=== PATIENT | male | born 1980 | race Caucasian/White ===

== ENCOUNTER 2017-04-09 14:08 | Emergency (ER) | payer MEDICAID ==
[2017-04-09] MEDS ORDERED: Sodium Chloride 0.9% 1,000 ML IV ONE (14:34)
--- NOTE | 2017-04-09 14:43 | EDM.PDOC ---
ED HPI GENERAL MEDICAL PROBLEM - General Chief Complaint: Neuro Symptoms/Deficits Stated Complaint: AMBULANCE Time Seen by Provider: 04/09/17 14:20 Source of Information: Reports: Patient, Family History Limitations: Reports: No Limitations - History of Present Illness INITIAL COMMENTS - FREE TEXT/NARRATIVE: History of present illness: [37-year-old male presenting the EMS secondary to fall from chair and subsequent seizure activity. Patient is known to have alcohol withdrawal seizures in the past and indicates he feels that is what has happened at this time. Patient has never sought medical attention for medication for seizures. Patient indicates he drinks 10-12 beers daily and sometimes has a few shots of drug or Eddie with us indicates that he has attempting to become a free Mann and that during the testing phase he must remain clean and dry and sober which she has achieved for 2-3 days.] Review of systems: As per history of present illness and below otherwise all systems reviewed and negative. Past medical history: As per history of present illness and as reviewed below otherwise noncontributory. Surgical history: As per history of present illness and as reviewed below otherwise noncontributory. Social history: No reported history of drug or alcohol abuse. Family history: As per history of present illness and as reviewed below otherwise noncontributory. Physical exam: HEENT: Deformed nose with swelling, erythema and slight shift to the left with the appearance of fracture, minor abrasions to face, normocephalic, pupils reactive, negative for conjunctival pallor or scleral icterus, mucous membranes moist, throat clear, neck supple, nontender, trachea midline. Lungs: Clear to auscultation, breath sounds equal bilaterally, chest nontender. Heart: S1S2, regular, negative for clicks, rubs, or JVD. Abdomen: Soft, nondistended, nontender. Negative for masses or hepatosplenomegaly. Negative for costovertebral tenderness. Pelvis: Stable nontender. Genitourinary: Deferred. Rectal: Deferred. Extremities: Atraumatic, negative for cords or calf pain. Neurovascular unremarkable. Neuro: Awake, alert, oriented. Cranial nerves II through XII unremarkable. Cerebellum unremarkable. Motor and sensory unremarkable throughout. Exam nonfocal. Diagnostics: [CT of head and facial bones CBC, CMP, amylase, lipase] Therapeutics: [IV fluid] Impression: [#1 Alcohol abuse #2 alcohol withdrawal related seizure #3 fractured nasal bones] Plan: [Follow-up with PCP on Tuesday] Definitive disposition and diagnosis as appropriate pending reevaluation and review of above. - Related Data Allergies Allergy/AdvReac Type Severity Reaction Status Date / Time No Known Allergies Allergy Verified 04/09/17 14:13 Home Meds: Home Meds . [No Known Home Meds] 04/09/17 [History] Past Medical History - Past Health History Medical/Surgical History: Denies Medical/Surgical History Neurological History: Reports: Seizure Social & Family History - Family History Family Medical History: Noncontributory - Tobacco Use Smoking Status *Q: Current Every Day Smoker Years of Tobacco use: 27 Packs/Tins Daily: 1 - Recreational Drug Use Recreational Drug Use: No ED ROS GENERAL - Review of Systems Review Of Systems: See Below (See history of present illness) ED EXAM, GENERAL - Physical Exam Exam: See Below (History of present illness) Course - Vital Signs Last Recorded V/S: Last Vital Signs Temp 36.3 C 04/09/17 14:08 Pulse 98 04/09/17 14:08 Resp 18 04/09/17 14:08 BP 135/86 04/09/17 14:08 Pulse Ox 94 L 04/09/17 14:08 - Orders/Labs/Meds Orders: Active Orders 24 hr Category Date Time Status EKG 12 Lead [EKG Documentation Completion] [RC] STAT Care 04/09/17 14:27 Active Facial Bones Comp Min 3V [CR] Stat Exams 04/09/17 14:50 Taken Head wo Cont [CT] Stat Exams 04/09/17 14:35 Taken Labs: Laboratory Tests 04/09/17 04/09/17 Range/Units 14:45 14:45 WBC 6.71 (4.0-11.0) K/uL RBC 4.51 (4.50-5.90) M/uL Hgb 15.1 (13.0-17.0) g/dL Hct 43.5 (38.0-50.0) % MCV 96.5 (80.0-98.0) fL MCH 33.5 H (27.0-32.0) pg MCHC 34.7 (31.0-37.0) g/dL RDW Std Deviation 45.2 (28.0-62.0) fl RDW Coeff of Stephan 13 (11.0-15.0) % Plt Count 94 L (150-400) K/uL MPV 10.20 (7.40-12.00) fL Neut % (Auto) 73.7 (48.0-80.0) % Lymph % (Auto) 15.2 L (16.0-40.0) % [place] % (Auto) 10.1 (0.0-15.0) % Eos % (Auto) 0.6 (0.0-7.0) % Baso % (Auto) 0.4 (0.0-1.5) % Neut # (Auto) 4.9 (1.4-5.7) K/uL Lymph # (Auto) 1.0 (0.6-2.4) K/uL [place] # (Auto) 0.7 (0.0-0.8) K/uL Eos # (Auto) 0.0 (0.0-0.7) K/uL Baso # (Auto) 0.0 (0.0-0.1) K/uL Nucleated RBC % 0.0 /100WBC Nucleated RBCs # 0 K/uL Sodium 133 L (136-146) mmol/L Potassium 3.8 (3.5-5.1) mmol/L Chloride 98 (98-110) mmol/L Carbon Dioxide 23 (21-31) mmol/L BUN 3 L (6.0-23.0) mg/dL Creatinine 0.7 (0.6-1.5) mg/dL Est Cr Clr Drug Dosing TNP Estimated GFR (MDRD) > 60.0 ml/min Glucose 133 H (60-110) mg/dL Calcium 9.4 (8.8-10.8) mg/dL Total Bilirubin 2.2 H (0.1-1.5) mg/dL AST 108 H (5-40) IU/L ALT 46 (8-54) IU/L Alkaline Phosphatase 201 H (40-150) Troponin I < 0.10 (0.0-0.29) NG/ML Total Protein 6.9 (6.0-8.0) g/dL Albumin 3.8 (3.5-5.0) g/dL Globulin 3.1 (2.0-3.5) g/dL Albumin/Globulin Ratio 1.2 L (1.3-2.8) Amylase 85 (10-90) U/L Lipase 39 (7-80) U/L Meds: Medications Discontinued Medications Generic Name Dose Route Start Last Admin Trade Name Joseph PRN Reason Stop Dose Admin Sodium Chloride 1,000 mls @ 999 mls/hr 04/09/17 14:34 04/09/17 14:46 Normal Saline IV 04/09/17 15:34 999 mls/hr .Bolus ONE Administration Departure - Departure Time of Disposition: 15:48 Disposition: Home, Self-Care 01 Condition: Good Clinical Impression: Seizure, Nose fracture - Discharge Information Forms: ED Department Discharge Additional Instructions: The following information is given to patients seen in the emergency department who are being discharged to home. This information is to outline your options for follow-up care. We provide all patients seen in our emergency department with a follow-up referral. The need for follow-up, as well as the timing and circumstances, are variable depending upon the specifics of your emergency department visit. If you don't have a primary care physician on staff, we will provide you with a referral. We always advise you to contact your personal physician following an emergency department visit to inform them of the circumstance of the visit and for follow-up with them and/or the need for any referrals to a consulting specialist. The emergency department will also refer you to a specialist when appropriate. This referral assures that you have the opportunity for follow-up care with a specialist. All of these measure are taken in an effort to provide you with optimal care, which includes your follow-up. Under all circumstances we always encourage you to contact your private physician who remains a resource for coordinating your care. When calling for follow-up care, please make the office aware that this follow-up is from your recent emergency room visit. If for any reason you are refused follow-up, please contact the [facility] Emergency Department at and asked to speak to the emergency department charge nurse. Follow-up with PCP Tuesday Return to ED as needed as discussed [facility] [address] [place] [id number] - My Orders Last 24 Hours: My Active Orders 04/09/17 14:35 Head wo Cont [CT] Stat 04/09/17 14:50 Facial Bones Comp Min 3V [CR] Stat - Assessment/Plan Last 24 Hours: My Active Orders 04/09/17 14:35 Head wo Cont [CT] Stat 04/09/17 14:50 Facial Bones Comp Min 3V [CR] Stat
[2017-04-09 15:10] LABS: CHLORIDE,CL 98 mmol/L (98-110); SODIUM,NA 133 mmol/L (136-146)
--- NOTE | 2017-04-10 19:34 | CT ---
EXAM DATE: 04/09/17 PATIENT'S AGE: 37 Patient: EDIN LEGER Facility: [place], [place] Site . Site : 1980 Study: CT Head WO CONT [id number]/09/2017 3:02:12 PM Ordering Physician: Doctor Luong Final Report: Indication: Fall, history of seizures. Technique: Contiguous axial images were obtained with 3 mm collimation from the skullbase through the vertex. Intravenous contrast was not administered. Comparison: None. Findings: The ventricles are midline, symmetric, and are of normal size shape and contour. There is no intracranial hemorrhage. There is no mass on this unenhanced CT scan. There is preservation of the ley/white matter junction. There is a bone fracture, partial opacification of the ethmoid air cells and near-complete opacification of the right maxillary sinus. Mucosal retention cyst or polyp is noted in the medial wall of the left maxillary sinus. There is nasal septal deviation to the left. The visualized mastoid air cells are normally aerated. Impression: 1. No acute intracranial abnormality. 2. Nasal bone fracture. 3. Sinus disease. Please note that all CT scans at this facility use dose modulation, iterative reconstruction, and/or weight-based dosing when appropriate to reduce radiation dose to as low as reasonably achievable. Dictated by Jaycee Seals MD @ Apr 09 2017 3:14PM (Electronic Signature) Report Signed by Proxy. [facility]
--- NOTE | 2017-04-10 19:38 | CR ---
EXAM DATE: 04/09/17 PATIENT'S AGE: 37 Patient: EDIN LEGER Facility: [place], [place] Site . Site : 1980 Study: XRay Facial [id number]/21/2017 3:28:24 PM Ordering Physician: Doctor Luong Final Report: HISTORY Pain after injury related to seizure. Findings: Six views of the facial bones and mandible are provided. There are no findings for fracture. Dictated by Rock Diaz MD @ Apr 09 2017 3:33PM (Electronic Signature) Report Signed by Proxy. KAHIL
== END 2017-04-09 16:09 | disposition home or self-care (01) ==
LOC: MW.ED 14:08
DX: R56.9 Unspecified convulsions (principal); F10.230 Alcohol dependence with withdrawal, uncomplicated; S02.2XXA Fracture of nasal bones, initial encounter for closed fracture; S00.81XA Abrasion of other part of head, initial encounter; F17.210 Nicotine dependence, cigarettes, uncomplicated; W07.XXXA Fall from chair, initial encounter
CPT/HCPCS: 36415; 70150; 70450; 80053; 82150; 83690; 84484; 85025; 93005; 96360; 99284; J7040; 99283

== ENCOUNTER 2021-03-25 06:35 | Day surgery (SDC) | payer MEDICAID ==
[~2021-03-25 06:35] MED LIST: cefOXitin 2 GM in Premix Bag 1 BAG IV ONE
[2021-03-25] MEDS ORDERED: Albuterol 0.083% 2.5 MG/3 ML Neb Soln NEB PRN (07:08)
[2021-03-25] MEDS ORDERED: Ondansetron 4 MG/2 ML SDV IVPUSH PRN (07:08)
[2021-03-25] MEDS ORDERED: Metoclopramide 10 MG/2 ML SDV IVPUSH PRN (07:08)
[2021-03-25] MEDS ORDERED: fentaNYL 100 MCG/2 ML SDV IVPUSH PRN (07:08)
[2021-03-25] MEDS ORDERED: Morphine 2 MG/ML SYRINGE IVPUSH PRN (07:08)
[2021-03-25] MEDS ORDERED: HYDROmorphone 1 MG/ML Syringe IVPUSH PRN (07:08)
[2021-03-25] MEDS ORDERED: Naloxone 0.4 MG/ML SDV IVPUSH PRN (07:08)
[2021-03-25] MEDS ORDERED: fentaNYL 250 MCG/5 ML SDV ONE (07:09)
[2021-03-25] MEDS ORDERED: Midazolam 1 MG/ML 2 ML SDV ONE (07:09)
[2021-03-25] MEDS ORDERED: Propofol 200 MG/20 ML SDV ONE (07:09)
[2021-03-25] MEDS ORDERED: Rocuronium Bromide 50 MG/5 ML Syringe ONE (07:10)
[2021-03-25] MEDS ORDERED: Sugammadex Sodium 200 MG/2 ML VIAL ONE (07:10)
[2021-03-25] MEDS ORDERED: Lidocaine 2% 5 ML SDV ONE ×2 (07:10→07:34)
[2021-03-25] MEDS ORDERED: Glycopyrrolate 0.2 MG/ML SDV ONE (07:10)
[2021-03-25] MEDS ORDERED: Ketorolac 30 MG/ML SDV ONE (07:10)
--- NOTE | 2021-03-25 07:16 | PCM.PREANE ---
Preanesthetic Assessment - Procedure Proposed Procedure: Left Inguinal Hernia Repair - Anesthesia/Transfusion/Family Hx Anesthesia History: Prior Anesthesia Without Reaction Family History of Anesthesia Reaction: No Transfusion History: No Prior Transfusion(s) - Review of Systems General: No Symptoms Pulmonary: No Symptoms (Smokes 2 PPD) Cardiovascular: No Symptoms Gastrointestinal: No Symptoms Neurological: No Symptoms ( h/o sz due to DTs) Other: Reports: None - Physical Assessment NPO Status Date: 03/24/21 NPO Status Time: 19:00 Height: 6 ft Weight: 72.121 kg ASA Class: 2 Mental Status: Alert & Oriented x3 Airway Class: Mallampati = 3 Dentition: Reports: Normal Dentition Thyro-Mental Finger Breadths: 3 Mouth Opening Finger Breadths: 3 ROM/Head Extension: Full Lungs: Clear to Auscultation, Normal Respiratory Effort Cardiovascular: Regular Rate, Regular Rhythm (Former ETOH abuse, has been sober x1yr) - Allergies Allergies/Adverse Reactions: Allergies Allergy/AdvReac Type Severity Reaction Status Date / Time No Known Allergies Allergy Verified 03/19/21 08:20 - Acknowledgements Anesthesia Type Planned: General Anesthesia Pt an Appropriate Candidate for the Planned Anesthesia: Yes Alternatives and Risks of Anesthesia Discussed w Pt/Guardian: Yes Pt/Guardian Understands and Agrees with Anesthesia Plan: Yes PreAnesthesia Questionnaire - Past Health History Medical/Surgical History: Denies Medical/Surgical History HEENT History: Reports: Other (See Below) Other HEENT History: wears glasses Cardiovascular History: Reports: None Respiratory History: Reports: None Gastrointestinal History: Reports: None Genitourinary History: Reports: None Musculoskeletal History: Reports: Fracture Neurological History: Reports: None, Seizure Psychiatric History: Reports: Other (See Below) Other Psychiatric History: recovering alcoholic, sober for 1 year Endocrine/Metabolic History: Reports: None Hematologic History: Reports: None Immunologic History: Reports: None Oncologic (Cancer) History: Reports: None Dermatologic History: Reports: None - Past Surgical History Head Surgeries/Procedures: Reports: None HEENT Surgical History: Reports: Tonsillectomy Cardiovascular Surgical History: Reports: None Respiratory Surgical History: Reports: None GI Surgical History: Reports: None Male Surgical History: Reports: None Endocrine Surgical History: Reports: None Neurological Surgical History: Reports: None Musculoskeletal Surgical History: Reports: Other (See Below) Other Musculoskeletal Surgeries/Procedures:: surgery for fx wrist, bone growth removed from leg Oncologic Surgical History: Reports: None Dermatological Surgical History: Reports: None - SUBSTANCE USE Tobacco Use Status *Q: Current Every Day Tobacco User Tobacco Use Within Last Twelve Months: Cigarettes - HOME MEDS Home Medications: Home Meds . [No Known Home Meds] 04/09/17 [History] - CURRENT (IN HOUSE) MEDS Current Meds: Current Medications Acetaminophen 1,000 mg/ Premix 100 mls @ 400 mls/hr IV ONCALL ONE Stop: 03/25/21 08:33 Lactated Ringer's (Ringers, Lactated) 1,000 mls @ 125 mls/hr IV ASDIRECTED KASSANDRA Pregabalin (Pregabalin 75 Mg Cap) 150 mg PO ONETIME ONE Stop: 03/25/21 08:20 Discontinued Medications Cefoxitin Sodium 2 gm/ Premix 50 mls @ 100 mls/hr IV ONETIME ONE Stop: 03/23/21 08:47
[2021-03-25] MEDS ORDERED: Lactated Ringers 1,000 ML IV SCH (07:30)
[2021-03-25] MEDS ORDERED: Pregabalin 75 MG Cap PO ONE (07:30)
[2021-03-25] MEDS ORDERED: Acetaminophen 1,000 MG in Premix Bag 1 BAG IV ONE (07:30)
[2021-03-25] MEDS ORDERED: Bupivacaine 0.5% 10 ML SDV ONE (07:37)
[2021-03-25] MEDS ORDERED: Octyl 2-Cyanoacrylate 1 Tube ONE (07:38)
--- NOTE | 2021-03-25 09:21 | PCM.OPNOTE ---
- General Post-Op/Procedure Note Date of Surgery/Procedure: 03/25/21 Operative Procedure(s): laparoscopic left inguinal hernia Findings: left indirect inguinal hernia dictation number [id number] Pre Op Diagnosis: left inguinal hernia Post-Op Diagnosis: left indirect inguinal hernia Primary Surgeon: Ramiro Ocampo Pathology: none EBL in mLs: 5 Complications: None Condition: Good
--- NOTE | 2021-03-25 09:29 | PCM.POSTAN ---
POST ANESTHESIA ASSESSMENT - MENTAL STATUS Mental Status: Somnolent - VITAL SIGNS Vital Signs: Last Vital Signs Temp 97.3 F 03/25/21 06:45 Pulse 56 L 03/25/21 06:45 Resp 16 03/25/21 06:45 BP 113/57 L 03/25/21 06:45 Pulse Ox 96 03/25/21 06:45 - RESPIRATORY Respiratory Status: Respiratory Rate WNL, Airway Patent, O2 Saturation Stable - CARDIOVASCULAR CV Status: Pulse Rate WNL, Blood Pressure Stable - GASTROINTESTINAL GI Status: No Symptoms - PAIN Free Text/Narrative:: Resting comfortably - POST OP HYDRATION Hydration Status: Adequate & Stable
--- NOTE | 2021-03-25 10:12 | PCM48HPAN ---
Post Anesthesia Note - EVALUATION WITHIN 48HRS OF ANESTHETIC Vital Signs in Normal Range: Yes Patient Participated in Evaluation: Yes Respiratory Function Stable: Yes Airway Patent: Yes Cardiovascular Function Stable: Yes Hydration Status Stable: Yes Pain Control Satisfactory: Yes Nausea and Vomiting Control Satisfactory: Yes Mental Status Recovered: Yes Vital Signs: Last Vital Signs Temp 97.7 F 03/25/21 09:26 Pulse 46 L 03/25/21 10:10 Resp 12 03/25/21 10:10 BP 103/55 L 03/25/21 10:10 Pulse Ox 100 03/25/21 10:10 - COMMENTS/OBSERVATIONS Free Text/Narrative:: Pt doing well post-op. VSS. No apparent anesthetic complications. Dr. Wes Meyers
[2021-03-25] MEDS ORDERED: fentaNYL 100 MCG/2 ML SDV ONE (11:57)
[2021-03-25] MEDS ORDERED: Sodium Chloride 0.9% 20 ML ONE (11:57)
[2021-03-25] MEDS ORDERED: cefOXitin 1 GM Vial ONE (11:57)
--- NOTE | 2021-03-25 16:58 | OR ---
SURGEON: TENZIN GAMA MD DATE OF PROCEDURE: 03/25/2021 PREOPERATIVE DIAGNOSIS: Left inguinal hernia. POSTOPERATIVE DIAGNOSIS: Indirect left inguinal hernia. PROCEDURE PERFORMED: Laparoscopic left inguinal hernia . PRIMARY SURGEON: Tenzin Gama MD ANESTHESIA: General. ESTIMATED BLOOD LOSS: 5 mL. COMPLICATIONS: None. REASON FOR PROCEDURE: Patient is a pleasant 41-year-old gentleman who says he had a left inguinal hernia for about a year or so. He says it pops out and bothers him when he coughs and if he lifts really heavy. He has always been able to reduce it. I did go over the risks, goals, and alternatives of this procedure. Risks included, but were not limited to bleeding, infection, mesh infection, chronic pain, nerve entrapment, loss to testicle or traumatic cord injury, need to convert to open, urinary retention. Also, discussed with the patient about a look at the right side and if there was any defect on the right side, to fixing that. He would like to do that also. Also, I went over with the patient he has a slightly increased risk of recurrence and infection because of his two-pack a day smoking habit. OPERATIVE NARRATIVE: Patient was brought to the OR. He was prepped and draped in usual fashion. SCDs placed. Davison catheter placed, and anesthesia provided by the Anesthesia team and preop antibiotics were given. Time-out was performed. An infraumbilical incision was made. This was carried down to the external rectus fascia. A small incision was made and the underlying rectus muscle was atraumatic really split to the posterior rectus sheath. Now, a balloon dissecting system was placed and inflated. The balloon dissecting system was removed and Ronen trocar was placed. Now, insufflation was begun and a preperitoneal pneumo was established. Two 5 mm trocars were placed under direct visualization in the midline. We did go up the left side first with the left lateral wall. Patient did have a moderate-sized left inguinal hernia sac. This was carefully dissected off the spermatic cord. After it was taken of the spermatic cord, it kind of spontaneously reduced. I also made sure there was good peritoneal reflection. Patient did have a very small cord lipoma, was also reduced. Now, a large 3DMax mid mesh was placed. This was secured in place with absorbable tacks twice in the periosteum of Daniel ligament. It laid nice and flat in good position. It was tucked underneath the peritoneal reflection. Now, our attention was brought to the right side. We did clear the lateral wall and patient did have a good peritoneal reflection. No signs of indirect or direct inguinal hernia on the right side. Now, the preperitoneal pneumo was released and it was observed. Mesh again stayed nice and flat and in good position. Insufflation was began again. Nothing was seen sliding out underneath the mesh, so the preperitoneal pneumo was released one last time. Again, the mesh laid nice and flat and tucked underneath the reflection. Now, the 5 mm trocars and Ronen trocar were removed. The anterior rectus sheath was closed with a [id number] of 0 Vicryl stitch. All the port sites were again injected with local and closed with 4-0 Monocryl and Dermabond. At the end of the case, sponge and needle counts were correct and both testicles were in the scrotum. IKER MARTIN /[id number]
== END 2021-03-25 11:05 | disposition home or self-care (01) ==
LOC: MW.SDS 06:35
PROVIDERS: ATTEND Surgery
DX: K40.90 Unilateral inguinal hernia, without obstruction or gangrene, not specified as recurrent (principal); F17.210 Nicotine dependence, cigarettes, uncomplicated; Z98.890 Other specified postprocedural states
CPT/HCPCS: 49650; A9270; C1781; J0131; J0694; J1885; J2250; J2370; J2704; J3010; J3490; J7120